=== PATIENT | male | born 1980 | race African-American/Black ===

== ENCOUNTER 2016-10-08 01:22 | Emergency (ER) | payer SELFPAY ==
--- NOTE | 2016-10-08 02:06 | RADIOLOGY REPORT (SQ) ---
EXAM DESCRIPTION: HAND RIGHT 3 VIEWS COMPLETED DATE/TIME: 10/08/2016 1:47 am REASON FOR STUDY: pain COMPARISON: 04/18/2011. EXAM PARAMETERS: NUMBER OF VIEWS: Three views. TECHNIQUE: AP, lateral and oblique radiographic images acquired of the right hand. LIMITATIONS: None. FINDINGS: MINERALIZATION: Normal. BONES: No acute fracture or dislocation. No worrisome bone lesions. No significant osteophytes. JOINTS: No erosions. No alyssa-articular osteopenia. No chondrocalcinosis. SOFT TISSUES: No swelling. No calcifications. OTHER: No other significant finding. IMPRESSION: NEGATIVE STUDY OF THE RIGHT HAND. NO EXPLANATION FOR PAIN. TECHNICAL DOCUMENTATION: JOB ID: [id number] [employer]- All Rights Reserved
--- NOTE | 2016-10-08 02:07 | ER Document Report ---
ED Hand/Wrist Injury - General TRAVEL OUTSIDE OF THE [place] IN LAST 30 DAYS: No - HPI Injury to: Wrist - right Onset: Just prior to arrival - Refer to HPI notes - General Chief Complaint: Hand Pain Stated Complaint: WRIST PAIN Time Seen by Provider: 10/08/16 01:56 Notes: Patient is a 35 year old male presenting to the emergency department for right wrist pain. Patient states he had a "bump" appear on his wrist. Patient has been ignoring the pain and states it has been present x3 days. Patient states his pain is waxing and waning. Patient does not have a primary care physician or insurance. Patient has no pertinent medical history other than a hernia. Patient has no known drug allergies. (KENNY ABEL) - Related Data Allergies/Adverse Reactions: No Known Allergies Allergy (Verified 02/23/15 10:50) Past Medical History - General Information source: Patient - Social History Smoking Status: Unknown if Ever Smoked Family History: Reviewed & Not Pertinent, DM Patient has suicidal ideation: No Patient has homicidal ideation: No GI Medical History: Reports: Other - hernia Surgical Hx: Negative - Immunizations Hx Diphtheria, Pertussis, Tetanus Vaccination: Yes Review of Systems - Review of Systems Constitutional: No symptoms reported EENT: No symptoms reported Cardiovascular: No symptoms reported Respiratory: No symptoms reported Gastrointestinal: No symptoms reported Genitourinary: No symptoms reported Male Genitourinary: No symptoms reported Musculoskeletal: See HPI Skin: No symptoms reported Hematologic/Lymphatic: No symptoms reported Neurological/Psychological: No symptoms reported -: Yes All other systems reviewed and negative Physical Exam - Vital signs Interpretation: Normal - Vital signs Vitals: Temp Pulse Resp BP Pulse Ox 98.1 F 99 18 136/88 H 98 10/08/16 01:27 10/08/16 01:27 10/08/16 01:27 10/08/16 01:27 10/08/16 01:27 - Notes Notes: GENERAL: Alert, interacts well. No acute distress. HEAD: Normocephalic, atraumatic. EYES: Appear normal. Pupils equal, round, and reactive to light. ENT: Moist mucus membranes, tongue midline. NECK: Full range of motion. Supple. Trachea midline. LUNGS: Clear to auscultation bilaterally, no wheezes, rales, or rhonchi. No respiratory distress. HEART: Regular rate and rhythm. No murmurs, gallops, or rubs. ABDOMEN: Soft, non-tender. Non-distended. Normal bowel sounds. EXTREMITIES: Moves all 4 extremities spontaneously. Right wrist has a nodule which feels like a tendon nodule. It is circular, freely mobile over the tendon. NEUROLOGICAL: Alert and oriented x3. Normal speech. No focal neurological deficits. GSC 15. PSYCH: Normal affect, normal mood. SKIN: Warm, dry, normal turgor. No rashes or lesions noted. (KENNY ABEL) Course - Re-evaluation Re-evalutation: 10/08/16 02:49 Patient presents emergency department with feels like a tendon on his right wrist he since occurred intermittently will get really large and then completely go down. It is painful and large right now he denies any known injury to the area numbness tingling or weakness. No fevers chills. Denies injecting anything into the area or previous history of injury to the area. On examination is freely mobile area felt. there is no bony association with it radial ulnar axillary median nerve intact good pulses and perfusion. X-ray does not show to be attached to the bone I think it is either a tendon nodule or tendon cyst. I go and have him follow-up with the clinic and is given the referral of Dr. alicea given his information despite that. Gave him a medication and he can take PCP follow- up orthopedic follow-up and discussed reasons for ED return sooner (CLARICE BANKS) - Vital Signs Vital signs: Temp Pulse Resp BP Pulse Ox 98.4 F 94 16 145/91 H 97 10/08/16 03:06 10/08/16 03:06 10/08/16 03:06 10/08/16 03:06 10/08/16 03:06 Discharge - Discharge Clinical Impression: Nodule right wrist Condition: Stable Disposition: HOME, SELF-CARE Additional Instructions: You have a palpable area on the wrist it feels like either a tendon cyst or a tendon nodule. It does not show up on the x-ray is not a bony infection or broken bone. I am going to give you information follow-up with the clinic refer you to orthopedics and return for increasing worsening or new symptoms Referrals: [facility] [Provider Group] - Follow up in 3-5 days JUJU COX DO [ACTIVE STAFF] - Follow up in 3-5 days Scribe Attestation: 10/08/16 02:50 I personally performed the services described in the documentation reviewed the documentation recorded by my scribe in my presence and it accurately and completely records my words and actions (CLARICE BANKS) Scribe Documentation - Scribe Written by Scribe:: Kenny Abel, Ari, 10/08/16 2:15 acting as scribe for :: Edis Holland
[2016-10-08] MEDS ORDERED: HYDROCODONE/ACETAMINOPHEN 5-325 MG 6 TAB/DSPK PO PRN (02:51)
[2016-10-08 03:10] VITALS: BP 145/91
== END 2016-10-08 03:06 | disposition home or self-care (01) ==
LOC: ER 01:22
DX: R22.31 Localized swelling, mass and lump, right upper limb (principal); M25.531 Pain in right wrist
CPT/HCPCS: 99283

== ENCOUNTER 2018-01-01 14:14 | Emergency (ER) | payer SELFPAY ==
[2018-01-01 14:21] VITALS: BP 143/85
[2018-01-01] MEDS ORDERED: KETOROLAC TROMETHAMINE 60 MG/2 ML SDV IM ONE (15:15)
--- NOTE | 2018-01-01 15:20 | ER Document Report ---
HPI - HPI Pain Level: 4 Notes: Patient is a 37-year-old male with no significant past medical history who presents to the ED complaining of right wrist burning with associated tingling and numbness into the right anterior hand intermittently over the last year. Patient states that he was diagnosed with carpal tunnel syndrome in the past, but started having a flareup recently. Patient states that he will have a "bubble" that shows up to his anterior wrist with increased activity of his hand which will then improve on its own over time. Patient states that he does do a lot with his hands regularly. Symptoms will wake him up at night on occasion as well. Denies drug allergies. Denies IV drug use. Denies any headache, fever, URI, sore throat, chest pain, palpitations, syncope, cough, shortness of breath, wheeze, dyspnea, abdominal pain, nausea/vomiting/diarrhea, urinary retention, dysuria, hematuria, muscle paralysis/weakness, or rash. - ROS Systems Reviewed and Negative: Yes All other systems reviewed and negative - CONSTITUTIONAL Constitutional: DENIES: Fever, Chills - EENT EENT: DENIES: Sore Throat, Ear Pain, Eye problems - NEURO Neurology: DENIES: Headache, Weakness, Vision blurred, Dizzinesss / Vertigo - CARDIOVASCULAR Cardiovascular: DENIES: Chest pain - RESPIRATORY Respiratory: DENIES: Trouble Breathing, Coughing - GASTROINTESTINAL Gastrointestinal: DENIES: Abdominal Pain, Black / Bloody Stools - URINARY Urinary: DENIES: Dysuria, Urgency, Frequency - MUSCULOSKELETAL Musculoskeletal: REPORTS: Extremity pain - right wrist Past Medical History - Social History Smoking Status: Current Every Day Smoker Chew tobacco use (# tins/day): No Frequency of alcohol use: Occasional Drug Abuse: None Family History: Reviewed & Not Pertinent, DM Patient has suicidal ideation: No Patient has homicidal ideation: No - Past Medical History Cardiac Medical History: Denies: Hx Coronary Artery Disease, Hx Heart Attack, Hx Hypertension Pulmonary Medical History: Denies: Hx Asthma, Hx Bronchitis, Hx COPD, Hx Pneumonia Neurological Medical History: Denies: Hx Cerebrovascular Accident, Hx Seizures Renal/ Medical History: Denies: Hx Peritoneal Dialysis Musculoskeletal Medical History: Denies Hx Arthritis Past Surgical History: Reports: Hx Abdominal Surgery - hernia - Immunizations Hx Diphtheria, Pertussis, Tetanus Vaccination: Yes Vertical Provider Document - CONSTITUTIONAL Agree With Documented VS: Yes Notes: PHYSICAL EXAMINATION: GENERAL: Well-appearing, well-nourished and in no acute distress. LUNGS: Breath sounds clear to auscultation bilaterally and equal. No wheezes rales or rhonchi. HEART: Regular rate and rhythm without murmurs, rubs, gallops. Musculoskeletal: Rt wrist: + tinel/phalen. FROM to passive/active. Strength 5+ /5. N/V intact distal. There is also a small cystic mass to the anterior wrist consistent with possible ganglion cyst. No erythema, induration, or streaks. Extremities: No cyanosis, clubbing, or edema b/l. Peripheral pulses 2+. Capillary refill less than 3 seconds. NEUROLOGICAL: Normal speech, normal gait. Normal sensory, motor exams PSYCH: Normal mood, normal affect. SKIN: Warm, Dry, normal turgor, no rashes or lesions noted. - INFECTION CONTROL TRAVEL OUTSIDE OF THE [place] IN LAST 30 DAYS: No Course - Re-evaluation Re-evalutation: 01/01/18 15:18 Patient is an afebrile, well-hydrated, 37-year-old male who presents to the ED with right wrist pain, suspect ganglion cyst as well as carpal tunnel syndrome. Vitals are acceptable without significant tachycardia, tachypnea, or hypoxia. PE is otherwise unremarkable for any neurovascular compromise, obvious tendon/ ligament rupture, obvious fracture/dislocation, septic joint. No labs or imaging warranted at this time. Cockup wrist splint applied today. Toradol given IM. Recommend conservative measures for symptoms. I will send him home with a steroid taper as well. Recheck with your PCM in 3-5 days. Consider consult orthopedics for further evaluation and management. Return to the ED with any worsening/concerning symptoms otherwise as reviewed in discharge. Patient is in agreement. - Vital Signs Vital signs: Temp Pulse Resp BP Pulse Ox 97.7 F 73 14 143/85 H 99 01/01/18 14:19 01/01/18 14:19 01/01/18 14:19 01/01/18 14:19 01/01/18 14:19 Discharge - Discharge Clinical Impression: Right wrist pain, Ganglion cyst Carpal tunnel syndrome Qualifiers: Laterality: right Qualified Code(s): G56.01 - Carpal tunnel syndrome, right upper limb Condition: Stable Disposition: HOME, SELF-CARE Additional Instructions: Rest, Ice, Compression, Elevation Use splint as directed Tylenol/ibuprofen as needed Light stretches daily Strength exercises as able Moist heat and massage may help F/u with your PCP in 3-5 days for a recheck Consider consult(s) with Orthopedics/physical therapy for ongoing/worsening symptoms Return to the ED with any worsening symptoms and/or development of fever, headache, chest pain, palpitations, syncope, shortness of breath, trouble breathing, abdominal pain, n/v/d, muscle weakness/paralysis, numbness/tingling, swelling, redness, or other worsening symptoms that are concerning to you. Prescriptions: Prednisone 20 mg PO ASDIR #18 tablet Forms: Elevated Blood Pressure, Smoking Cessation Education Referrals: [facility] [Provider Group] - Follow up in 1 week
== END 2018-01-01 16:03 | disposition home or self-care (01) ==
LOC: ER 14:14
DX: G56.01 Carpal tunnel syndrome, right upper limb (principal); M67.431 Ganglion, right wrist; M25.531 Pain in right wrist; R20.0 Anesthesia of skin; F17.200 Nicotine dependence, unspecified, uncomplicated
CPT/HCPCS: 99283; 96372; L3908; J1885

== ENCOUNTER 2018-11-25 16:04 | Emergency (ER) | payer SELFPAY ==
[2018-11-25] MEDS ORDERED: IBUPROFEN 800 MG TABLET PO ONE (17:43)
--- NOTE | 2018-11-25 17:48 | ER Document Report ---
ED Extremity Problem, Upper - General Chief Complaint: Wrist Pain Stated Complaint: WRIST PAIN Time Seen by Provider: 11/25/18 17:42 Mode of Arrival: Ambulatory Information source: Patient Notes: 37-year-old male presented to ED for complaint of chronic pain to the right wrist for about a year. He states he went to Dr. Mason about 3 months ago who told him he had carpal tunnel to the right wrist. He states he gave him some kind of wrap to put on his arm and some medicine and sent him home. This is his dominant hand. I have treated the patient with a cock-up splint and ibuprofen and instructed him to follow-up with a hand surgeon as there is treatment for this condition. He does have numbness and tingling to the middle 2 fingers when he bends his hand. He states he is hand is getting more weak. TRAVEL OUTSIDE OF THE [place] IN LAST 30 DAYS: No - HPI Patient complains to provider of: Pain, Right, Wrist Onset: Other - A year Recent injury: No Quality of pain: Achy, Sharp Pain Level: 3 Context: Other - Pain to right wrist goes to the middle two the fingers Exacerbated by: Movement, Exertion Relieved by: Rest, Positioning Similar symptoms previously: Yes Recently seen / treated by doctor: No - Related Data Allergies/Adverse Reactions: No Known Allergies Allergy (Verified 02/23/15 10:50) Past Medical History - General Information source: Patient - Social History Smoking Status: Current Some Day Smoker Cigarette use (# per day): Yes - Couple cigarettes Smoking Education Provided: Yes Frequency of alcohol use: Social Drug Abuse: None Occupation: Yardwork Family History: Reviewed & Not Pertinent, DM Patient has suicidal ideation: No Patient has homicidal ideation: No - Past Medical History Cardiac Medical History: Reports: None Pulmonary Medical History: Reports: None EENT Medical History: Reports: None Neurological Medical History: Reports: None Endocrine Medical History: Reports: None Renal/ Medical History: Reports: None Malignancy Medical History: Reports None GI Medical History: Reports: None Musculoskeletal Medical History: Reports Hx Musculoskeletal Deformity - Carpal tunnel Skin Medical History: Reports None Psychiatric Medical History: Reports: None Traumatic Medical History: Reports: None Infectious Medical History: Reports: None Past Surgical History: Reports: Hx Inguinal Hernia - Immunizations Hx Diphtheria, Pertussis, Tetanus Vaccination: Yes Review of Systems - Review of Systems Constitutional: No symptoms reported EENT: No symptoms reported Cardiovascular: No symptoms reported Respiratory: No symptoms reported Gastrointestinal: No symptoms reported Genitourinary: No symptoms reported Male Genitourinary: No symptoms reported Musculoskeletal: Joint pain - Right wrist radiates to middle 2 fingers. denies: Joint swelling Skin: No symptoms reported Hematologic/Lymphatic: No symptoms reported Neurological/Psychological: No symptoms reported -: Yes All other systems reviewed and negative Physical Exam - Vital signs Vitals: Temp Pulse Resp BP Pulse Ox 98.1 F 76 13 152/86 H 99 11/25/18 16:26 11/25/18 16:26 11/25/18 16:26 11/25/18 16:26 11/25/18 16:26 Interpretation: Normal - General General appearance: Appears well, Alert - HEENT Head: Normocephalic, Atraumatic Eyes: Normal Pupils: PERRL - Respiratory Respiratory status: No respiratory distress Chest status: Nontender Breath sounds: Normal Chest palpation: Normal - Cardiovascular Rhythm: Regular Heart sounds: Normal auscultation Murmur: No - Abdominal Inspection: Normal Distension: No distension Bowel sounds: Normal Tenderness: Nontender Organomegaly: No organomegaly - Back Back: Normal, Nontender - Extremities General upper extremity: Normal inspection, Normal color, Normal ROM, Normal temperature General lower extremity: Normal inspection, Nontender, Normal color, Normal ROM, Normal temperature, Normal weight bearing. No: Jeffery's sign Wrist: Tender - Right wrist radiates to the right middle 2 fingers. No: Abrasion, Axial load of thumb pain, Deformity, Dislocation, Ecchymosis, Instability, Laceration, Limited ROM, Navicular tenderness - Neurological Neuro grossly intact: Yes Cognition: Normal Orientation: AAOx4 Jordan Coma Scale Eye Opening: Spontaneous Jordan Coma Scale Verbal: Oriented Jordan Coma Scale Motor: Obeys Commands Jordan Coma Scale Total: 15 Speech: Normal Motor strength normal: LUE, RUE, LLE, RLE Sensory: Normal - Psychological Associated symptoms: Normal affect, Normal mood - Skin Skin Temperature: Warm Skin Moisture: Dry Skin Color: Normal Course - Re-evaluation Re-evalutation: 11/25/18 17:52 Patient given instructions on elevation ibuprofen Tylenol and to follow-up with orthopedics. Patient verbalized understanding of need to follow-up with orthopedics for this condition. Patient was discharged home. - Vital Signs Vital signs: Temp Pulse Resp BP Pulse Ox 98.1 F 76 13 152/86 H 99 11/25/18 16:26 11/25/18 16:26 11/25/18 16:26 11/25/18 16:26 11/25/18 16:26 Procedures - Immobilization Left Wrist Time completed: 17:51 Immobilizer type: Cock-up Performed by: MERCEDES Post-Proc Neuro Vasc Exam: Normal Alignment checked and good: Yes Discharge - Discharge Clinical Impression: Carpal tunnel syndrome of right wrist Condition: Stable Disposition: HOME, SELF-CARE Additional Instructions: Carpal Tunnel Syndrome Your examination suggests carpal tunnel syndrome. This syndrome is due to pressure on a nerve in the wrist. The pressure may be caused by an old injury, hard work using the wrist, work involving repeated motions of the hand, wrist positions that keep pressure on the joint, or arthritis in the wrist. Typical symptoms are tingling, numbness, and pain in the palm, thumb, index and middle fingers, and one side of the ring finger. Often a splint, ice packs, and antiinflammatory medication make the symptoms go away. If the physician feels that your problem is chronic, you will be referred to a specialist for further care. If symptoms do not go away, carpal tunnel syndrome may require surgery. You should call the doctor if pain increases, if you develop difficulty using the thumb or fingers, or if major swelling occurs. Ibuprofen Ibuprofen is an excellent, safe drug for pain control. In addition, it has potent antiinflammatory effects which are beneficial, especially in the treatment of injuries, arthritis, or tendonitis. It's best to take ibuprofen with food. Persons with ulcer disease or allergy to aspirin should notify their physician of this before taking ibuprofen. Take the medication exactly as prescribed. Don't take additional doses unless instructed to do so by your doctor. If you develop wheezing, shortness of breath, hives, faintness, stomach pain, vomiting, or dark black stools, return for re-evaluation at once. Acetaminophen Acetaminophen may be taken for pain relief or fever control. It's much safer than aspirin, offering a wider range of "safe" dosages. It is safe during . Some brand names are Tylenol, Panadol, Datril, Anacin 3, Tempra, and Liquiprin. Acetaminophen can be repeated every four hours. The following are maximum recommended dosages: WEIGHT Dose Drops Elixir Chewable(80mg) (LBS.) drprs=droppers tsp=teaspoon 6 40 mg .4 ml (1/2) 6-11 80 mg .8 ml (full) 1/2 tsp 1 tab 12-16 120 mg 1 1/2 drprs 3/4 tsp 1 1/2 tabs 17-23 160 mg 2 drprs 1 tsp 2 tabs 24-30 240 mg 3 drprs 1 1/2 tsp 3 tabs 30-35 320 mg 2 tsp 4 tabs 36-41 360 mg 2 1/4 tsp 4 1/2 tabs 42-47 400 mg 2 1/2 tsp 5 tabs 48-53 480 mg 3 tsp 6 tabs 54-59 520 mg 3 1/4 tsp 6 1/2 tabs 60-64 560 mg 3 1/2 tsp 7 tabs 65-70 600 mg 3 3/4 tsp 7 1/2 tabs 71-76 640 mg 4 tsp 8 tabs 77-82 720 mg 4 1/2 tsp 9 tabs 83-88 800 mg 5 tsp 10 tabs >89 pounds or adults 650 mg to 900 mg Acetaminophen can be repeated every four hours. Maximum daily dose not to exceed 4000 mg. These maximum recommended dosages are slightly higher than the dosages w ritten on the product container, but these dosages are very safe and well below the toxic dosage for acetaminophen. FOLLOW-UP CARE: If you have been referred to a physician for follow-up care, call the physicians office for an appointment as you were instructed or within the next two days. If you experience worsening or a significant change in your symptoms, notify the physician immediately or return to the Emergency Department at any time for re-evaluation. Forms: Elevated Blood Pressure, Smoking Cessation Education, Return to Work Referrals: JUJU COX DO [ACTIVE STAFF] - Follow up in 3-5 days
[2018-11-25 17:52] VITALS: BP 150/82
== END 2018-11-25 17:50 | disposition home or self-care (01) ==
LOC: ER 16:04
DX: G56.01 Carpal tunnel syndrome, right upper limb (principal); M25.531 Pain in right wrist; G89.29 Other chronic pain; F17.210 Nicotine dependence, cigarettes, uncomplicated
CPT/HCPCS: L3908 ×2; 99283